=== PATIENT | female | born 1985 | race Caucasian/White ===

== ENCOUNTER 2017-11-10 18:38 | Inpatient (IN) | payer OTHER ==
[2017-11-10] MEDS: DEXTROSE 5%-0.45% NACL 1,000 ML IV (22:46)
[2017-11-10] MEDS: SUMATRIPTAN 6 MG/0.5 ML INJ SC (23:32)
[2017-11-11 01:25] LABS: ADD MAN DIFF? NO
[2017-11-11 01:28] LABS: WHITE BLOOD COUNT 12.9 10^3/ul (4.8-10.8)
[2017-11-11 01:28] LABS: BASOPHILS % 0.3 % (0.0-2.0); EOSINOPHILS # 0.2 10^3/ul (0.0-0.5); EOSINOPHILS % 1.2 % (0.0-7.0); HEMATOCRIT 32.9 % (37.0-47.0); HEMOGLOBIN 10.8 g/dl (12.0-16.0); LYMPHOCYTES # 2.4 10^3/ul (0.8-2.9); LYMPHOCYTES % 18.4 % (15.0-51.0); MEAN CORPUSCULAR HEMOGLOBIN 31.7 pg (29.0-33.0); MEAN CORPUSCULAR HGB CONC 32.8 g/dl (32.0-37.0); MEAN CORPUSCULAR VOLUME 96.5 fl (82.0-101.0); MEAN PLATELET VOLUME 9.2 fl (7.4-10.4); MONOCYTE # 0.7 10^3/ul (0.3-0.9); MONOCYTES % 5.2 % (0.0-11.0); NEUTROPHIL # 9.6 10^3/ul (1.6-7.5); NEUTROPHILS % 74.6 % (39.0-77.0); PLATELET COUNT 373 10^3/UL (140-415); RED BLOOD COUNT 3.41 10^6/ul (4.20-5.40); RED CELL DISTRIBUTION WIDTH 12.7 % (11.5-14.5)
[2017-11-11 01:52] LABS: ALANINE AMINOTRANSFERASE 97 IU/L (13-69); ALBUMIN 3.1 g/dl (3.3-4.9); ALBUMIN/GLOBULIN RATIO 1.03; ALKALINE PHOSPHATASE 501 IU/L (42-121); ANION GAP 13 (8-16); ASPARTATE AMINO TRANSFERASE 71 IU/L (15-46); BILIRUBIN,INDIRECT 0.8 mg/dl (0-1.1); BILIRUBIN,TOTAL 0.9 mg/dl (0.2-1.3); BLOOD UREA NITROGEN 3 mg/dl (7-20); CALCIUM 8.8 mg/dl (8.4-10.2); CARBON DIOXIDE 27 mmol/L (21-31); CHLORIDE 105 mmol/L (97-110); CREATININE 0.49 mg/dl (0.44-1.00); GLUCOSE 115 mg/dl (70-220); MAGNESIUM 2.4 mg/dl (1.7-2.5); PHOSPHORUS 3.1 mg/dl (2.5-4.9); POTASSIUM 3.6 mmol/L (3.5-5.1); SODIUM 141 mmol/L (135-144); TOTAL PROTEIN 6.1 g/dl (6.1-8.1)
[2017-11-11 03:11] LABS: HEMOGLOBIN A1C 5.3 % (0-5.9)
[2017-11-11] MEDS: ONDANSETRON 4 MG INJ IV (07:00)
[2017-11-11] MEDS: morphine 2 MG INJ IV ×2 (07:00→08:40)
[2017-11-11] MEDS: DEXTROSE 5%-0.45% NACL 1,000 ML IV ×3 (08:33→20:53)
[2017-11-11] MEDS ORDERED: NACL 0.9% 3 ML SYG IV (09:00)
[2017-11-11] MEDS ORDERED: ALBUTEROL/IPRATROPIUM (NEB) 3 ML AMP HHN (09:00)
[2017-11-11] MEDS: FAMOTIDINE 20 MG INJ IV ×2 (10:05→20:54)
[2017-11-11] MEDS: LORAZEPAM 2 MG INJ IV (16:41)
[2017-11-12 06:26] LABS: ADD MAN DIFF? NO
[2017-11-12 06:36] LABS: WHITE BLOOD COUNT 7.5 10^3/ul (4.8-10.8)
[2017-11-12 06:36] LABS: BASOPHIL # 0.1 10^3/ul (0.0-0.1); BASOPHILS % 0.7 % (0.0-2.0); EOSINOPHILS # 0.2 10^3/ul (0.0-0.5); EOSINOPHILS % 2.1 % (0.0-7.0); HEMATOCRIT 34.9 % (37.0-47.0); HEMOGLOBIN 11.6 g/dl (12.0-16.0); LYMPHOCYTES # 2.5 10^3/ul (0.8-2.9); LYMPHOCYTES % 33.7 % (15.0-51.0); MEAN CORPUSCULAR HEMOGLOBIN 32.3 pg (29.0-33.0); MEAN CORPUSCULAR HGB CONC 33.2 g/dl (32.0-37.0); MEAN CORPUSCULAR VOLUME 97.2 fl (82.0-101.0); MEAN PLATELET VOLUME 9.2 fl (7.4-10.4); MONOCYTE # 0.6 10^3/ul (0.3-0.9); MONOCYTES % 7.4 % (0.0-11.0); NEUTROPHIL # 4.2 10^3/ul (1.6-7.5); NEUTROPHILS % 55.7 % (39.0-77.0); PLATELET COUNT 442 10^3/UL (140-415); RED BLOOD COUNT 3.59 10^6/ul (4.20-5.40); RED CELL DISTRIBUTION WIDTH 12.4 % (11.5-14.5)
[2017-11-12 07:01] LABS: ALANINE AMINOTRANSFERASE 89 IU/L (13-69); ALBUMIN 3.3 g/dl (3.3-4.9); ALKALINE PHOSPHATASE 454 IU/L (42-121); ANION GAP 14 (8-16); ASPARTATE AMINO TRANSFERASE 60 IU/L (15-46); BILIRUBIN,INDIRECT 0.6 mg/dl (0-1.1); BILIRUBIN,TOTAL 0.6 mg/dl (0.2-1.3); BLOOD UREA NITROGEN 3 mg/dl (7-20); CARBON DIOXIDE 29 mmol/L (21-31); CHLORIDE 103 mmol/L (97-110); CREATININE 0.56 mg/dl (0.44-1.00); GLUCOSE 109 mg/dl (70-220); MAGNESIUM 2.3 mg/dl (1.7-2.5); PHOSPHORUS 4.7 mg/dl (2.5-4.9); POTASSIUM 3.7 mmol/L (3.5-5.1); SODIUM 142 mmol/L (135-144); TOTAL PROTEIN 6.6 g/dl (6.1-8.1)
[2017-11-12] MEDS: DEXTROSE 5%-0.45% NACL 1,000 ML IV (07:31)
[2017-11-12] MEDS: FAMOTIDINE 20 MG INJ IV ×2 (08:27→21:04)
[2017-11-13] MEDS: ONDANSETRON 4 MG INJ IV (02:23)
[2017-11-13] MEDS: morphine 2 MG INJ IV (02:24)
[2017-11-13] MEDS: FAMOTIDINE 20 MG INJ IV ×2 (08:38→20:26)
[2017-11-14] MEDS: INDOMETHACIN 50 MG SUPP PR ×2 (04:23→13:30)
[2017-11-14 05:54] LABS: ADD MAN DIFF? NO
[2017-11-14 06:00] LABS: BASOPHIL # 0.1 10^3/ul (0.0-0.1); BASOPHILS % 0.5 % (0.0-2.0); EOSINOPHILS # 0.3 10^3/ul (0.0-0.5); EOSINOPHILS % 2.9 % (0.0-7.0); HEMATOCRIT 38.2 % (37.0-47.0); HEMOGLOBIN 12.6 g/dl (12.0-16.0); LYMPHOCYTES # 3.4 10^3/ul (0.8-2.9); LYMPHOCYTES % 35.9 % (15.0-51.0); MEAN CORPUSCULAR HEMOGLOBIN 31.4 pg (29.0-33.0); MEAN CORPUSCULAR VOLUME 95.3 fl (82.0-101.0); MEAN PLATELET VOLUME 8.9 fl (7.4-10.4); MONOCYTE # 0.6 10^3/ul (0.3-0.9); MONOCYTES % 6.3 % (0.0-11.0); NEUTROPHILS % 53.4 % (39.0-77.0); PLATELET COUNT 492 10^3/UL (140-415); RED BLOOD COUNT 4.01 10^6/ul (4.20-5.40); RED CELL DISTRIBUTION WIDTH 11.9 % (11.5-14.5)
[2017-11-14 06:00] LABS: WHITE BLOOD COUNT 9.4 10^3/ul (4.8-10.8)
[2017-11-14 06:49] LABS: MAGNESIUM 2.3 mg/dl (1.7-2.5)
[2017-11-14 07:00] LABS: ALANINE AMINOTRANSFERASE 73 IU/L (13-69); ALBUMIN 3.3 g/dl (3.3-4.9); ALBUMIN/GLOBULIN RATIO 1.13; ALKALINE PHOSPHATASE 418 IU/L (42-121); ANION GAP 15 (8-16); ASPARTATE AMINO TRANSFERASE 51 IU/L (15-46); BILIRUBIN,INDIRECT 0.5 mg/dl (0-1.1); BILIRUBIN,TOTAL 0.5 mg/dl (0.2-1.3); BLOOD UREA NITROGEN 4 mg/dl (7-20); CALCIUM 9.6 mg/dl (8.4-10.2); CARBON DIOXIDE 29 mmol/L (21-31); CHLORIDE 101 mmol/L (97-110); GLUCOSE 89 mg/dl (70-220); POTASSIUM 4.4 mmol/L (3.5-5.1); SODIUM 141 mmol/L (135-144); TOTAL PROTEIN 6.2 g/dl (6.1-8.1)
[2017-11-14] MEDS ORDERED: SUCCINYLCHOLINE CHLORIDE 100 MG/5 ML SYG IV (07:00)
[2017-11-14] MEDS ORDERED: CEFAZOLIN 1 GM INJ (07:00)
[2017-11-14] MEDS: FAMOTIDINE 20 MG INJ IV ×2 (09:13→21:43)
[2017-11-14] MEDS ORDERED: IOHEXOL 300MG/ML 30 ML BTL ×2 (12:52→14:41)
[2017-11-14] MEDS ORDERED: MIDAZOLAM 1 MG/ML 2 ML INJ (12:57)
[2017-11-14] MEDS ORDERED: FENTAnyl 50 MCG/ML VIAL ×2 (12:57→14:27)
[2017-11-14] MEDS ORDERED: DEXAMETHASONE 4 MG/ML 1 ML INJ (12:58)
[2017-11-14] MEDS ORDERED: ONDANSETRON 4 MG INJ (12:58)
[2017-11-14] MEDS ORDERED: METOCLOPRAMIDE 10 MG INJ (12:58)
[2017-11-14] MEDS ORDERED: PROPOFOL 20 ML (13:13)
[2017-11-14] MEDS ORDERED: LIDOCAINE 2% (SDV) 5 ML INJ (13:13)
[2017-11-14] MEDS ORDERED: CEFAZOLIN 1 GM/50 ML (PMX) 50 ML IVPB (13:22)
[2017-11-14] MEDS ORDERED: MIDAZOLAM 1 MG/ML 2 ML INJ IV (13:30)
[2017-11-14] MEDS ORDERED: FENTAnyl 50 MCG/ML VIAL IV ×2 (13:30)
[2017-11-14] MEDS ORDERED: ONDANSETRON 4 MG INJ IV (13:30)
[2017-11-14] MEDS ORDERED: EPHEDrine 50 MG INJ (13:42)
[2017-11-14] MEDS ORDERED: PHENYLephrine (100 MCG/ML) 5ML SYG ×2 (13:43→14:09)
[2017-11-14] MEDS: morphine 2 MG INJ IV ×2 (16:46→21:42)
[2017-11-14] MEDS: LEVOFLOXACIN 500MG/D5W (PMX) 100 ML IVPB (16:56)
[2017-11-14] MEDS: metroNIDAZOLE 500 MG/NS (PMX) 100 ML IVPB ×2 (16:56→21:43)
[2017-11-14] MEDS: ONDANSETRON 4 MG INJ IV (21:42)
[2017-11-15 05:02] LABS: ADD MAN DIFF? NO
[2017-11-15 05:07] LABS: WHITE BLOOD COUNT 13.9 10^3/ul (4.8-10.8)
[2017-11-15 05:07] LABS: BASOPHILS % 0.1 % (0.0-2.0); EOSINOPHILS % 0.1 % (0.0-7.0); HEMATOCRIT 38.8 % (37.0-47.0); HEMOGLOBIN 13.4 g/dl (12.0-16.0); LYMPHOCYTES # 1.7 10^3/ul (0.8-2.9); LYMPHOCYTES % 12.2 % (15.0-51.0); MEAN CORPUSCULAR HEMOGLOBIN 32.6 pg (29.0-33.0); MEAN CORPUSCULAR HGB CONC 34.5 g/dl (32.0-37.0); MEAN CORPUSCULAR VOLUME 94.4 fl (82.0-101.0); MEAN PLATELET VOLUME 8.7 fl (7.4-10.4); MONOCYTE # 0.7 10^3/ul (0.3-0.9); MONOCYTES % 5.1 % (0.0-11.0); NEUTROPHIL # 11.4 10^3/ul (1.6-7.5); NEUTROPHILS % 81.9 % (39.0-77.0); PLATELET COUNT 542 10^3/UL (140-415); RED BLOOD COUNT 4.11 10^6/ul (4.20-5.40); RED CELL DISTRIBUTION WIDTH 11.7 % (11.5-14.5)
[2017-11-15] MEDS: metroNIDAZOLE 500 MG/NS (PMX) 100 ML IVPB (05:31)
[2017-11-15 05:42] LABS: MAGNESIUM 2.1 mg/dl (1.7-2.5)
[2017-11-15 05:47] LABS: ALANINE AMINOTRANSFERASE 71 IU/L (13-69); ALBUMIN 3.9 g/dl (3.3-4.9); ALBUMIN/GLOBULIN RATIO 1.08; ALKALINE PHOSPHATASE 462 IU/L (42-121); ANION GAP 14 (8-16); ASPARTATE AMINO TRANSFERASE 46 IU/L (15-46); BILIRUBIN,INDIRECT 0.6 mg/dl (0-1.1); BILIRUBIN,TOTAL 0.6 mg/dl (0.2-1.3); BLOOD UREA NITROGEN 6 mg/dl (7-20); CALCIUM 9.5 mg/dl (8.4-10.2); CARBON DIOXIDE 28 mmol/L (21-31); CHLORIDE 102 mmol/L (97-110); CREATININE 0.62 mg/dl (0.44-1.00); GLUCOSE 115 mg/dl (70-220); SODIUM 140 mmol/L (135-144); TOTAL PROTEIN 7.5 g/dl (6.1-8.1)
[2017-11-15 06:32] LABS: ALANINE AMINOTRANSFERASE 78 IU/L (13-69); ALBUMIN 3.6 g/dl (3.3-4.9); ALKALINE PHOSPHATASE 455 IU/L (42-121); ASPARTATE AMINO TRANSFERASE 44 IU/L (15-46); BILIRUBIN,INDIRECT 0.7 mg/dl (0-1.1); BILIRUBIN,TOTAL 0.7 mg/dl (0.2-1.3)
[2017-11-15] MEDS: FAMOTIDINE 20 MG INJ IV ×2 (08:26→20:29)
[2017-11-16 05:11] LABS: ADD MAN DIFF? NO
[2017-11-16 05:23] LABS: WHITE BLOOD COUNT 10.3 10^3/ul (4.8-10.8)
[2017-11-16 05:23] LABS: BASOPHILS % 0.3 % (0.0-2.0); EOSINOPHILS # 0.2 10^3/ul (0.0-0.5); EOSINOPHILS % 1.5 % (0.0-7.0); HEMATOCRIT 36.1 % (37.0-47.0); HEMOGLOBIN 12.1 g/dl (12.0-16.0); LYMPHOCYTES % 29.4 % (15.0-51.0); MEAN CORPUSCULAR HEMOGLOBIN 32.1 pg (29.0-33.0); MEAN CORPUSCULAR HGB CONC 33.5 g/dl (32.0-37.0); MEAN CORPUSCULAR VOLUME 95.8 fl (82.0-101.0); MEAN PLATELET VOLUME 8.7 fl (7.4-10.4); MONOCYTE # 0.9 10^3/ul (0.3-0.9); MONOCYTES % 8.7 % (0.0-11.0); NEUTROPHIL # 6.1 10^3/ul (1.6-7.5); NEUTROPHILS % 59.5 % (39.0-77.0); PLATELET COUNT 501 10^3/UL (140-415); RED BLOOD COUNT 3.77 10^6/ul (4.20-5.40); RED CELL DISTRIBUTION WIDTH 12.1 % (11.5-14.5)
[2017-11-16 05:38] LABS: MAGNESIUM 2.1 mg/dl (1.7-2.5)
[2017-11-16 05:45] LABS: ALANINE AMINOTRANSFERASE 62 IU/L (13-69); ALBUMIN 3.4 g/dl (3.3-4.9); ALBUMIN/GLOBULIN RATIO 0.97; ALKALINE PHOSPHATASE 379 IU/L (42-121); ANION GAP 11 (8-16); ASPARTATE AMINO TRANSFERASE 41 IU/L (15-46); BILIRUBIN,INDIRECT 0.5 mg/dl (0-1.1); BILIRUBIN,TOTAL 0.5 mg/dl (0.2-1.3); BLOOD UREA NITROGEN 6 mg/dl (7-20); CALCIUM 9.1 mg/dl (8.4-10.2); CARBON DIOXIDE 28 mmol/L (21-31); CHLORIDE 106 mmol/L (97-110); GLUCOSE 114 mg/dl (70-220); POTASSIUM 3.8 mmol/L (3.5-5.1); SODIUM 141 mmol/L (135-144); TOTAL PROTEIN 6.9 g/dl (6.1-8.1)
[2017-11-16] MEDS: FAMOTIDINE 20 MG INJ IV (08:35)
== END 2017-11-16 11:00 | disposition home or self-care (01) | DRG 446 ==
LOC: PP2 18:38
PROC: 0FPB8DZ Removal of Intraluminal Device from Hepatobiliary Duct, Via Natural or Artificial Opening Endoscopic (ICD-10-PCS; principal; 2017-11-14 13:00)
PROC: 0F798DZ Dilation of Common Bile Duct with Intraluminal Device, Via Natural or Artificial Opening Endoscopic (ICD-10-PCS; 2017-11-14 13:00)
PROC: 0FC98ZZ Extirpation of Matter from Common Bile Duct, Via Natural or Artificial Opening Endoscopic (ICD-10-PCS; 2017-11-14 13:00)
DX: K80.50 Calculus of bile duct without cholangitis or cholecystitis without obstruction (principal); R73.03 Prediabetes
CPT/HCPCS: 74181; 74330; 80053; 80076; 83036; 83735; 84100; 85025; 87081

== ENCOUNTER 2017-12-02 23:26 | Inpatient (IN) | payer OTHER ==
[2017-12-03] MEDS: ONDANSETRON 4 MG INJ IV ×4 (01:02→23:38)
[2017-12-03] MEDS: morphine 4 MG/ML VIAL IV (01:03)
[2017-12-03] MEDS: SOD CHLORIDE 0.9% 1,000 ML IV ×3 (01:03→13:36)
[2017-12-03 01:18] LABS: ADD MAN DIFF? NO
[2017-12-03 01:21] LABS: WHITE BLOOD COUNT 17.1 10^3/ul (4.8-10.8)
[2017-12-03 01:21] LABS: BASOPHILS % 0.2 % (0.0-2.0); EOSINOPHILS # 0.2 10^3/ul (0.0-0.5); HEMATOCRIT 39.6 % (37.0-47.0); HEMOGLOBIN 13.4 g/dl (12.0-16.0); LYMPHOCYTES # 1.1 10^3/ul (0.8-2.9); LYMPHOCYTES % 6.4 % (15.0-51.0); MEAN CORPUSCULAR HEMOGLOBIN 31.7 pg (29.0-33.0); MEAN CORPUSCULAR HGB CONC 33.8 g/dl (32.0-37.0); MEAN CORPUSCULAR VOLUME 93.6 fl (82.0-101.0); MONOCYTE # 1.1 10^3/ul (0.3-0.9); MONOCYTES % 6.3 % (0.0-11.0); NEUTROPHIL # 14.6 10^3/ul (1.6-7.5); NEUTROPHILS % 85.7 % (39.0-77.0); PLATELET COUNT 507 10^3/UL (140-415); RED BLOOD COUNT 4.23 10^6/ul (4.20-5.40); RED CELL DISTRIBUTION WIDTH 11.9 % (11.5-14.5)
[2017-12-03 01:39] LABS: ALANINE AMINOTRANSFERASE 135 IU/L (13-69); ALBUMIN 4.6 g/dl (3.3-4.9); ALBUMIN/GLOBULIN RATIO 1.17; ALKALINE PHOSPHATASE 633 IU/L (42-121); ANION GAP 13 (8-16); ASPARTATE AMINO TRANSFERASE 157 IU/L (15-46); BILIRUBIN,INDIRECT 1.3 mg/dl (0-1.1); BILIRUBIN,TOTAL 2.4 mg/dl (0.2-1.3); BLOOD UREA NITROGEN 9 mg/dl (7-20); CALCIUM 9.8 mg/dl (8.4-10.2); CARBON DIOXIDE 26 mmol/L (21-31); CHLORIDE 105 mmol/L (97-110); CREATININE 0.58 mg/dl (0.44-1.00); GLUCOSE 130 mg/dl (70-220); LIPASE 45 U/L (23-300); POTASSIUM 3.5 mmol/L (3.5-5.1); SODIUM 140 mmol/L (135-144); TOTAL PROTEIN 8.5 g/dl (6.1-8.1)
[2017-12-03 02:06] LABS: ADD UMIC YES; UR ASCORBIC ACID 40 mg/dL (NEGATIVE); UR BILIRUBIN (Dip) 1+ mg/dL (NEGATIVE); UR BLOOD (Dip) NEGATIVE (NEGATIVE); UR CLARITY SLIGHTLY CLOUDY (CLEAR); UR COLOR AMBER (YELLOW); UR GLUCOSE (Dip) NEGATIVE (NEGATIVE); UR KETONES (Dip) 1+ mg/dL (NEGATIVE); UR LEUKOCYTE ESTERASE (Dip) 1+ Leu/ul (NEGATIVE); UR MUCUS MANY /HPF (NONE SEEN); UR NITRITE (Dip) NEGATIVE (NEGATIVE); UR RBC 2 /HPF (0-5); UR SPECIFIC GRAVITY (Dip) 1.032 (1.003-1.030); UR SQUAMOUS EPITHELIAL CELL MODERATE /HPF (FEW); UR TOTAL PROTEIN (Dip) 1+ mg/dl (NEGATIVE); UR UROBILINOGEN (Dip) 2+ mg/dL (NEGATIVE); UR WBC 3 /HPF (0-5)
[2017-12-03] MEDS: HYDROmorphONE 2 MG/ML SYG IV (02:08)
[2017-12-03] MEDS ORDERED: DOCUSATE SODIUM 100 MG CAP PO (04:30)
[2017-12-03] MEDS ORDERED: ACETAMINOPHEN 325 MG TAB PO (04:30)
[2017-12-03] MEDS ORDERED: BISACODYL (EC) 5 MG TAB PO (04:30)
[2017-12-03] MEDS ORDERED: NACL 0.9% 3 ML SYG IV (04:30)
[2017-12-03] MEDS: PIPER-TAZO 3.375 GM IV (PMX) 100 ML IVPB ×4 (04:46→23:38)
[2017-12-03] MEDS: HYDROmorphONE 0.5 MG/0.5 ML SYG IV ×2 (04:46→08:01)
[2017-12-03] MEDS: HYDROmorphONE 1 MG/ML SYG IV ×3 (10:57→16:59)
[2017-12-03] MEDS ORDERED: FENTAnyl 50 MCG/ML VIAL (19:40)
[2017-12-03] MEDS ORDERED: MIDAZOLAM 1 MG/ML 2 ML INJ (19:40)
[2017-12-03] MEDS ORDERED: morphine 10 MG INJ (20:51)
[2017-12-03] MEDS ORDERED: ROCURONIUM 50 MG INJ (21:27)
[2017-12-03] MEDS ORDERED: NEOSTIGMINE 3 MG/3 ML SYRINGE (21:27)
[2017-12-03] MEDS ORDERED: PROPOFOL 20 ML (21:27)
[2017-12-03] MEDS ORDERED: ONDANSETRON 4 MG INJ (21:27)
[2017-12-03] MEDS ORDERED: KETOROLAC 30 MG INJ (21:27)
[2017-12-03] MEDS ORDERED: LIDOCAINE 2% (SDV) 5 ML INJ (21:27)
[2017-12-03] MEDS ORDERED: GLYCOPYRROLATE 0.4 MG INJ (21:27)
[2017-12-03] MEDS ORDERED: CEFAZOLIN 1 GM INJ (21:29)
[2017-12-03] MEDS ORDERED: MEPERIDINE 25 MG INJ IV (22:00)
[2017-12-03] MEDS ORDERED: ONDANSETRON 4 MG INJ IV (22:00)
[2017-12-03] MEDS ORDERED: FENTAnyl 50 MCG/ML VIAL IV (22:00)
[2017-12-03] MEDS ORDERED: HYDROmorphONE 1 MG/5 ML IV SYRINGE IV ×2 (22:00)
[2017-12-03] MEDS ORDERED: DIPHENHYDRAMINE 50 MG INJ IV (22:00)
[2017-12-04] MEDS: SOD CHLORIDE 0.9% 1,000 ML IV ×3 (00:30→20:30)
[2017-12-04] MEDS: PIPER-TAZO 3.375 GM IV (PMX) 100 ML IVPB ×3 (05:03→17:42)
[2017-12-04 05:18] LABS: ADD MAN DIFF? NO
[2017-12-04 05:24] LABS: BASOPHILS % 0.1 % (0.0-2.0); EOSINOPHILS % 0.1 % (0.0-7.0); HEMATOCRIT 33.2 % (37.0-47.0); LYMPHOCYTES # 1.8 10^3/ul (0.8-2.9); LYMPHOCYTES % 8.6 % (15.0-51.0); MEAN CORPUSCULAR HEMOGLOBIN 32.2 pg (29.0-33.0); MEAN CORPUSCULAR HGB CONC 33.1 g/dl (32.0-37.0); MEAN CORPUSCULAR VOLUME 97.1 fl (82.0-101.0); MEAN PLATELET VOLUME 9.2 fl (7.4-10.4); MONOCYTE # 1.4 10^3/ul (0.3-0.9); MONOCYTES % 6.8 % (0.0-11.0); NEUTROPHIL # 17.2 10^3/ul (1.6-7.5); NEUTROPHILS % 83.9 % (39.0-77.0); PLATELET COUNT 344 10^3/UL (140-415); RED BLOOD COUNT 3.42 10^6/ul (4.20-5.40); RED CELL DISTRIBUTION WIDTH 12.3 % (11.5-14.5)
[2017-12-04 05:24] LABS: WHITE BLOOD COUNT 20.5 10^3/ul (4.8-10.8)
[2017-12-04 05:41] LABS: MAGNESIUM 1.7 mg/dl (1.7-2.5)
[2017-12-04 05:45] LABS: ALANINE AMINOTRANSFERASE 71 IU/L (13-69); ALBUMIN/GLOBULIN RATIO 1.03; ALKALINE PHOSPHATASE 380 IU/L (42-121); ANION GAP 10 (8-16); ASPARTATE AMINO TRANSFERASE 55 IU/L (15-46); BILIRUBIN,INDIRECT 0.9 mg/dl (0-1.1); BILIRUBIN,TOTAL 3.6 mg/dl (0.2-1.3); BLOOD UREA NITROGEN 6 mg/dl (7-20); CALCIUM 8.3 mg/dl (8.4-10.2); CARBON DIOXIDE 30 mmol/L (21-31); CHLORIDE 104 mmol/L (97-110); CREATININE 0.58 mg/dl (0.44-1.00); GLUCOSE 104 mg/dl (70-220); POTASSIUM 4.2 mmol/L (3.5-5.1); SODIUM 140 mmol/L (135-144); TOTAL PROTEIN 5.9 g/dl (6.1-8.1)
[2017-12-04] MEDS ORDERED: HYDROmorphONE 1 MG/ML SYG IV (12:30)
[2017-12-04] MEDS ORDERED: HYDROCODONE/APAP (5/325) TAB PO (12:30)
[2017-12-05] MEDS: PIPER-TAZO 3.375 GM IV (PMX) 100 ML IVPB ×3 (00:30→12:08)
[2017-12-05 05:31] LABS: ADD MAN DIFF? NO
[2017-12-05 05:34] LABS: WHITE BLOOD COUNT 12.3 10^3/ul (4.8-10.8)
[2017-12-05 05:34] LABS: BASOPHILS % 0.2 % (0.0-2.0); EOSINOPHILS # 0.3 10^3/ul (0.0-0.5); HEMATOCRIT 32.2 % (37.0-47.0); HEMOGLOBIN 10.8 g/dl (12.0-16.0); LYMPHOCYTES # 2.8 10^3/ul (0.8-2.9); LYMPHOCYTES % 22.4 % (15.0-51.0); MEAN CORPUSCULAR HGB CONC 33.5 g/dl (32.0-37.0); MEAN CORPUSCULAR VOLUME 95.5 fl (82.0-101.0); MEAN PLATELET VOLUME 9.5 fl (7.4-10.4); MONOCYTE # 0.8 10^3/ul (0.3-0.9); MONOCYTES % 6.3 % (0.0-11.0); NEUTROPHIL # 8.5 10^3/ul (1.6-7.5); NEUTROPHILS % 68.7 % (39.0-77.0); PLATELET COUNT 363 10^3/UL (140-415); RED BLOOD COUNT 3.37 10^6/ul (4.20-5.40); RED CELL DISTRIBUTION WIDTH 12.5 % (11.5-14.5)
[2017-12-05 05:52] LABS: ALANINE AMINOTRANSFERASE 58 IU/L (13-69); ALBUMIN 2.9 g/dl (3.3-4.9); ALKALINE PHOSPHATASE 329 IU/L (42-121); ANION GAP 8 (8-16); ASPARTATE AMINO TRANSFERASE 48 IU/L (15-46); BILIRUBIN,INDIRECT 0.6 mg/dl (0-1.1); BILIRUBIN,TOTAL 0.6 mg/dl (0.2-1.3); BLOOD UREA NITROGEN 5 mg/dl (7-20); CALCIUM 8.2 mg/dl (8.4-10.2); CARBON DIOXIDE 28 mmol/L (21-31); CHLORIDE 110 mmol/L (97-110); CREATININE 0.55 mg/dl (0.44-1.00); GLUCOSE 89 mg/dl (70-220); POTASSIUM 3.4 mmol/L (3.5-5.1); SODIUM 143 mmol/L (135-144); TOTAL PROTEIN 5.8 g/dl (6.1-8.1)
[2017-12-05] MEDS: INDOMETHACIN 50 MG SUPP PR (09:43)
[2017-12-05] MEDS: POTASSIUM CHLORIDE (SR) 20 MEQ TAB PO (09:45)
[2017-12-05] MEDS: CEPASTAT LOZENGE MT ×2 (13:36→14:19)
== END 2017-12-05 15:30 | disposition home or self-care (01) | DRG 445 ==
LOC: FTE 23:26 → PP2 12-03 04:27
PROC: 0F7C8DZ Dilation of Ampulla of Vater with Intraluminal Device, Via Natural or Artificial Opening Endoscopic (ICD-10-PCS; principal; 2017-12-03 18:30)
PROC: 0FCC8ZZ Extirpation of Matter from Ampulla of Vater, Via Natural or Artificial Opening Endoscopic (ICD-10-PCS; 2017-12-03 18:30)
DX: K80.51 Calculus of bile duct without cholangitis or cholecystitis with obstruction (principal); T85.520A Displacement of bile duct prosthesis, initial encounter; N39.0 Urinary tract infection, site not specified; E66.9 Obesity, unspecified; Z68.30 Body mass index [BMI] 30.0-30.9, adult; Y84.8 Other medical procedures as the cause of abnormal reaction of the patient, or of later complication, without mention of misadventure at the time of the procedure; Y92.019 Unspecified place in single-family (private) house as the place of occurrence of the external cause; Z90.49 Acquired absence of other specified parts of digestive tract
CPT/HCPCS: 74019; 74330; 76705; 80053; 81001; 81025; 83690; 83735; 85025; 87086; G0378

== ENCOUNTER 2018-03-04 14:29 | Day surgery (SDC) | payer OTHER ==
[2018-03-04] MEDS ORDERED: MEPERIDINE /PF (100 MG/2 ML) AMPULE (16:28)
[2018-03-04] MEDS ORDERED: FENTAnyl 50 MCG/ML VIAL (18:32)
[2018-03-04] MEDS ORDERED: MIDAZOLAM 1 MG/ML 2 ML INJ (18:32)
[2018-03-04] MEDS ORDERED: NEOSTIGMINE 3 MG/3 ML SYRINGE (19:13)
[2018-03-04] MEDS ORDERED: GLYCOPYRROLATE 0.4 MG INJ (19:13)
[2018-03-04] MEDS ORDERED: PROPOFOL 20 ML (19:13)
[2018-03-04] MEDS ORDERED: ROCURONIUM 50 MG INJ (19:13)
[2018-03-04] MEDS ORDERED: LIDOCAINE 2% (SDV) 5 ML INJ (19:13)
[2018-03-04] MEDS ORDERED: CEFAZOLIN 1 GM INJ (19:13)
[2018-03-04] MEDS ORDERED: ONDANSETRON 4 MG INJ (19:14)
== END 2018-03-04 20:49 | disposition home or self-care (01) ==
LOC: SDS 14:29
DX: Z46.59 Encounter for fitting and adjustment of other gastrointestinal appliance and device (principal); E11.9 Type 2 diabetes mellitus without complications
CPT/HCPCS: 43275; 74330